=== PATIENT | female | born 2000 | race Caucasian/White ===

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

== ENCOUNTER 2021-01-15 06:24 | Inpatient (IN) ==
[2021-01-15] MEDS ORDERED: D5 1/2 NS 1000 ML 1,000 ML IV ONE (06:41)
[2021-01-15] MEDS ORDERED: PITOCIN ONE (06:41)
[2021-01-15] MEDS ORDERED: BETADINE SOLN ONE (06:41)
[2021-01-15] MEDS ORDERED: D5LR 1L W PITOCIN 10 UNITS/L 10 UNITS/1,000 ML BAG IV ONE (06:42)
[2021-01-15] MEDS ORDERED: D5 1/2 NS 1L W PITOCIN 20 UNITS/L 20 UNITS/1,000 ML BAG IV ONE (06:42)
--- NOTE | 2021-01-15 07:13 | DR.OB ---
OB Quick Note - Assessment/Plan Assessment/Plan: L&D 01/15/21 at 7:05am S-No complaint. O-Afebrile,VSS LRA=392 with good LTV, +accel, no decel. CTX=none CVX=3cm/75%/0/VTX AROM with clear fluid. IUPC and FSE placed. A-IUP at 39 1/7 weeks for induction Rh- P-Begin pitocin induction F/U labs Anticipate
[2021-01-15] MEDS ORDERED: MORPHINE SULFATE INJ 2 MG INJ IVP PRN (07:20)
[2021-01-15] MEDS ORDERED: PHENERGAN INJ 25 MG IM PRN ×2 (07:20→13:50)
[2021-01-15] MEDS ORDERED: REGLAN INJ 10 MG VIAL IVP PRN (07:20)
[2021-01-15] MEDS ORDERED: PITOCIN IVP ONE (07:20)
[2021-01-15] MEDS ORDERED: NUBAIN INJ 200 MG VIAL MULTIDOSE IVP PRN (07:20)
[2021-01-15] MEDS ORDERED: D5 1/2 NS 1000 ML 1,000 ML IV SCH (07:20)
[2021-01-15] MEDS ORDERED: D5LR 1L W PITOCIN 10 UNITS/L 10 UNITS/1,000 ML BAG IV PRN (07:20)
[2021-01-15] MEDS ORDERED: STADOL INJ IVP PRN (07:22)
[2021-01-15 07:48] LABS: BASOPHILS # (AUTO) 0.1 X10^3/uL (0.0-0.1); BASOPHILS % (AUTO) 0.8 % (0.2-1.0); BILIRUBIN,URINE NEGATIVE (NEGATIVE); BLOOD/HEMOGLOBIN,URINE 1+ (NEGATIVE); EOSINOPHILS # (AUTO) 0.1 x10^3/uL (0.0-0.2); EOSINOPHILS % (AUTO) 1.1 % (0.9-2.9); GLUCOSE, URINE NEGATIVE (NEGATIVE); HEMATOCRIT 29.9 % (36.0-47.0); HEMOGLOBIN 10.1 g/dL (12.0-16.0); KETONES,URINE 1+ (NEGATIVE); LEUKOCYTE ESTERASE ,URINE 1+ (NEGATIVE); LYMPHOCYTES # (AUTO) 2.2 X10^3/uL (1.3-2.9); LYMPHOCYTES % (AUTO) 26.9 % (21.0-51.0); MEAN CORPUSCULAR HEMOGLOBIN 25.9 pg (27.0-34.0); MEAN CORPUSCULAR HGB CONC 33.6 g/dL (33.0-35.0); MEAN CORPUSCULAR VOLUME 76.9 fL (80.0-100.0); MEAN PLATELET VOLUME 7.2 fL (7.4-11.0); MONOCYTES # (AUTO) 0.8 x10^3/uL (0.3-0.8); NEUTROPHILS # (AUTO) 4.9 x10^3/uL (2.2-4.8); NEUTROPHILS % (AUTO) 61.2 % (42.0-75.0); NITRITES,URINE NEGATIVE (NEGATIVE); PLATELET COUNT 282 X10^3/uL (150.0-450.0); PROTEIN,URINE NEGATIVE (NEGATIVE); RED CELL DISTRIBUTION WIDTH 15.4 % (11.6-16.5); UROBILINOGEN,URINE NORMAL (NORMAL)
[2021-01-15 07:54] LABS: APPEARANCE,URINE CLEAR (CLEAR); BACTERIA,URINE TRACE /HPF (NEGATIVE); COLOR,URINE YELLOW (YELLOW); MUCUS,URINE MODERATE /HPF (NEGATIVE); RBC,URINE 0-2 /HPF (0-3); SQUAMOUS EPITHELIAL CELL,UR MODERATE /HPF (NEGATIVE)
[2021-01-15 07:57] LABS: BLOOD UREA NITROGEN 5 mg/dL (7-18); CALCIUM 8.1 mg/dL (8.5-10.1); CARBON DIOXIDE 23.4 mmol/L (21-32); CHLORIDE 101 mmol/L (98-107); CREATININE 0.55 mg/dL (0.55-1.02); SODIUM 136 mmol/L (136-145); eGFR NON BLACK RACES > 60 (>60)
[2021-01-15] MEDS ORDERED: STADOL INJ ONE (08:26)
[2021-01-15] MEDS ORDERED: FENTANYL VIAL INJ 100 mcg ONE (08:26)
[2021-01-15] MEDS ORDERED: LR 1000 ML IV 1,000 ML IV ONE (08:26)
[2021-01-15] MEDS ORDERED: NAROPIN EPIDURAL 0.2% 100 ML ONE (08:26)
--- NOTE | 2021-01-15 11:48 | DR.OB ---
OB Quick Note - Assessment/Plan Assessment/Plan: L&D 01/15/21 at 11:45am Pitocin=14mu/min. S-No complaint. s/p epidural. O-Afebrile,VSS XUO=086 with good LTV, +accel, no decel. CTX=q 1 1/2 to 2 min., about 45-55mmHg CVX=5cm/90%/0 A-IUP at 39 1/7 weeks for induction Rh- P-Cont. pitocin induction Anticipate
[2021-01-15] MEDS ORDERED: MOTRIN TAB 800 MG PO PRN ×2 (13:50→14:46)
--- NOTE | 2021-01-15 13:56 | DR.OB ---
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 Head delivered over intact perineum. Nuchal cord x 1 reduced. Nose and mouth bulb suctioned. Body delivered over intact perineum. Cord clamped x 2 and cut. Infant handed to attendant. Cord sent for gases. Placenta delivered spontaneously / intact / 3 vessel cord. No CVX / vaginal / perineal tears noted. Viable female , VTX/OA, wt=8'0" and 9/9, stable to NBN. Mother stable to RR. BNE=[id number].
[2021-01-15] MEDS ORDERED: D5 1/2 NS 1000 ML 1,000 ML with PITOCIN 20 UNITS IV SCH ×2 (14:00)
[2021-01-15] MEDS ORDERED: DERMOPLAST PAIN RELIEF SPRAY TOP PRN (14:46)
[2021-01-15] MEDS ORDERED: MILK OF MAGNESIA PO PRN (14:46)
[2021-01-15] MEDS ORDERED: HYPERRHO S/D (or RHOGAM) IM PRN (14:46)
[2021-01-15] MEDS ORDERED: AMBIEN PO PRN (14:46)
[2021-01-16 05:14] LABS: HEMATOCRIT 26.5 % (36.0-47.0); HEMOGLOBIN 8.9 g/dL (12.0-16.0)
[2021-01-16] MEDS ORDERED: PRENATAL PLUS PO SCH (09:00)
[2021-01-16 12:16] VITALS: BP 123/58
== END 2021-01-16 15:20 | disposition home or self-care (01) | DRG 807 ==
LOC: LD 06:24 → MED/SURG 15:12
PROVIDERS: ADMIT Specialist; ATTEND Specialist
DX: Z37.0 Single live birth; D50.8 Other iron deficiency anemias; O36.0930 Maternal care for other rhesus isoimmunization, third trimester, not applicable or unspecified; Z3A.39 39 weeks gestation of pregnancy